=== PATIENT | female | born 1940 | race African-American/Black ===

== ENCOUNTER 2023-12-04 11:18 | Emergency (ER) | payer OTHER ==
[~2023-12-04] VITALS: Ht 170.2 cm; Wt 59.9 kg
[~2023-12-04 11:18] MED LIST: ASPIRIN81 MG PO; CRESTOR10 MG PO; FAMOTIDINE20 MG PO; LATANOPROST2.5 ML OP; LEVOTHYROXINE75 MCG PO; LINZESS72 MCG PO; LOSARTAN-HCTZ1 EAC2 PO; POTASSIUM CHLO20 ME1 PO
[2023-12-04] MEDS ORDERED: MUCINEX DM ER1 EAC1 PO (13:19)
[2023-12-04 13:35] VITALS: BP 115/57; PULSE 57; RESP 16; TEMP 98.6; O2SAT 100
== END 2023-12-04 13:28 | disposition home or self-care (01) ==
LOC: ER 11:24
DX: R05.9 Cough, unspecified (principal); U07.1 COVID-19; I10 Essential (primary) hypertension; E03.9 Hypothyroidism, unspecified
CPT/HCPCS: 71045; 87400; 99283